=== PATIENT | male | born 1995 | race Caucasian/White ===

== ENCOUNTER 2018-07-30 11:41 | Emergency (ER) | payer BC ==
--- NOTE | 2018-07-30 13:08 | EDPHY ---
H & P Stated Complaint: R arm abcess Time Seen by Provider: 07/30/18 12:54 HPI/ROS: CHIEF COMPLAINT: "I have an abscess" HISTORY OF PRESENT ILLNESS: 23-year-old male history of IV drug use, currently in day 3 of rehab at [facility], noted progressive right forearm erythema, started on Keflex by the physician there, notes progressive enlargement with no drainage. No lymphangitic streaking. No fever no chills. No nausea or vomiting. No flu-like symptoms. PHYSICAL EXAM (Prior to examination, patient consented to physical exam, hands were washed and my usual and customary physical exam procedures followed) 1) GENERAL: Well-developed, well-nourished, alert and oriented. Appears to be in no acute distress. 2) HEAD: Normocephalic 3) HEENT: sclera anicteric 4) LUNGS: Breathing comfortably. 5) SKIN: Right radial forearm erythema with a central area measuring 2 cm of fluctuance no drainage. No lymphangitic streaking. No crepitus. 6) MUSCULOSKELETAL: Full range of motion distally and proximally without eliciting pain. Soft compartments - Personal History Current Tetanus/Diphtheria Vaccine: Yes Current Tetanus Diphtheria and Acellular Pertussis (TDAP): Yes - Medical/Surgical History Hx Asthma: No Hx Chronic Respiratory Disease: No Hx Diabetes: No Hx Cardiac Disease: No Hx Renal Disease: No Hx Cirrhosis: No Hx Alcoholism: No Hx HIV/AIDS: No Hx Splenectomy or Spleen Trauma: No Other PMH: opiate abuse, - Social History Smoking Status: Current every day smoker Constitutional: Initial Vital Signs Temperature (C) 37.3 C 07/30/18 12:08 Heart Rate 87 07/30/18 12:08 Respiratory Rate 16 07/30/18 12:08 Blood Pressure 102/67 07/30/18 12:08 O2 Sat (%) 98 07/30/18 12:08 O2 Delivery Mode Room Air Allergies/Adverse Reactions: No Known Allergies Allergy (Unverified 07/30/18 12:07) Home Medications: Medication Instructions Recorded Clonidine 07/30/18 Gabapentin 07/30/18 Suboxone 12 mg-3 mg Sl Film 07/30/18 Sulfamethox/Tmp 800/160 mg 1 tab PO BID@1000,2200 10 Days tab 07/30/18 [Bactrim Ds] traZODone 07/30/18 Medical Decision Making Procedures: Procedure: Abscess drainage. The patient's abscess was located on the right forearm. I obtained verbal consent from the patient to drain the abscess who was informed about the possibility of bleeding and pain. The abscess was incised with a scalpel and a moderate amount of purulent drainage was expressed. I irrigated the wound and placed some packing. The patient tolerated the procedure well. The procedure was performed by myself. ED Course/Re-evaluation: Doubt necrotizing fasciitis, doubt myositis doubt compartment syndrome. Abscess was incised and drained by myself in the ER, aspiration sent to laboratory for testing. He is currently on Keflex, will add Bactrim to his medication regimen. Recommend elevation. I do not think that further diagnostic studies indicated at this time. I do not think that hospitalization or IV antibiotics indicated at this time. Given my usual customary wound precautions instructions. I saw this patient independently based on established practice protocols. Care of patient under supervision of secondary supervising physician Dr Wero Agosto . Departure - Departure Disposition: Home, Routine, Self-Care Clinical Impression: Abscess of right forearm Condition: Good Instructions: Abscess (ED) Additional Instructions: Return to the ER if you develop fever, chills, flu-like symptoms, redness, swelling, discharge, warmth to the wound, red streaks going up your arm, or any other symptoms that concern you. Keep taking your Keflex medicine until finished. I am adding Bactrim antibiotic as well Referrals: Rigoberto Adams MD [Medical Doctor] - 2-3 days, call for appt. Prescriptions: Sulfamethox/Tmp 800/160 mg [Bactrim Ds] 1 tab PO BID@1000,2200 10 Days tab
[2018-07-30 13:27] VITALS: BP 110/64
== END 2018-07-30 13:27 | disposition home or self-care (01) ==
PROC: 0H9DXZZ Drainage of Right Lower Arm Skin, External Approach (ICD-10-PCS; principal; 2018-07-30)
DX: L02.413 Cutaneous abscess of right upper limb (principal)